=== PATIENT | female | born 1955 | race Caucasian/White ===

== ENCOUNTER → 2017-03-19 | Outpatient (CLI) | payer BC ==
[~2017-03-19] MED LIST: ATOR-14 PO; CHOL100027 PO; ESTR1CRE PV; LEVO88TA PO
--- NOTE | 2017-03-19 14:54 | MAMMOGRAPHY REPORT ---
BILATERAL DIGITAL SCREENING MAMMOGRAM TOMOSYNTHESIS WITH CAD: 03/19/2017 TECHNIQUE: Breast tomosynthesis in addition to standard 2D mammography was performed. Current study was also evaluated with a Computer Aided Detection (CAD) system. COMPARISON: Comparison is made to exams dated: 03/18/2016 mammogram, 03/15/2015 mammogram, 03/14/2014 m ammogram, 03/10/2013 mammogram, 02/23/2012 mammogram, and 02/13/2011 mammogram - [facility]. BREAST COMPOSITION: There are scattered areas of fibroglandular density in both breasts. FINDINGS: No suspicious masses, calcifications, or areas of architectural distortion are noted in ei ther breast. There has been no significant interval change compared to prior exams. IMPRESSION: ACR BI-RADS CATEGORY 1: NEGATIVE There is no mammographic evidence of malignancy. A 1 year screening mammogram is recommended. The pa tient will receive written notification of the results. Approximately 10% of breast cancers are not detected with mammography. A negative mammographic report should not delay biopsy if a clinically suggestive mass is present. Seda Ramirez M.D. /:03/19/2017 14:43:46 Driver Helper: Maria Antonia GAO(R)(M), [facility] letter sent: Normal 1/2 BI-RADS Code: ACR BI-RADS Category 1: Negative
== END | disposition home or self-care (01) ==
LOC: C.MAMM 08:11
PROVIDERS: ATTEND Family Medicine
DX: Z12.31 Encounter for screening mammogram for malignant neoplasm of breast (principal)

== ENCOUNTER 2017-06-17 14:33 | Emergency (ER) | payer BC, OTHER ==
[~2017-06-17] VITALS: Ht 157.5 cm; Wt 82.2 kg
[2017-06-17 14:40] VITALS: TEMP 36.9; Ht 157.5 cm; Wt 82.2 kg
[2017-06-17] MEDS ORDERED: METHYLPREDNISOLONE 125 MG VIAL IV STA (14:54)
[2017-06-17] MEDS ORDERED: ALBUT/IPRATROP 3MG/0.5MG NEB 3 ML VIAL INH ONE (15:00)
[2017-06-17] MEDS ORDERED: LISI-461 PO (15:04)
[2017-06-17] MEDS ORDERED: PHEN-582 PO (15:07)
[2017-06-17] MEDS ORDERED: PRM625 PV (15:10)
[2017-06-17] MEDS ORDERED: ATOR10TA82 PO (15:10)
[2017-06-17 15:11] VITALS: PULSE 95; O2SAT 96
[2017-06-17 15:29] LABS: MEAN CELL VOLUME 87.6 fL (80-100); MEAN CORPUSCULAR HEMOGLOBIN 29.9 pg (25-34); MEAN CORPUSCULAR HGB CONC 34.1 g/dl (32-36); PLATELET COUNT 415 K/uL (130-400); RED CELL DISTRIBUTION WIDTH CV 13.8 % (11.5-14.5); RED CELL DISTRIBUTION WIDTH SD 44.1 fL (36.4-46.3); WHITE BLOOD COUNT 16.79 K/uL (4.8-10.8)
[2017-06-17 15:47] LABS: CALCIUM 9.1 mg/dl (8.5-10.1); CREATININE 1.14 mg/dl (0.60-1.20); POTASSIUM 3.4 mmol/L (3.5-5.1)
--- NOTE | 2017-06-17 17:00 | DIAGNOSTIC IMAGING REPORT ---
CHEST 2 VIEWS ROUTINE HISTORY: 61 years-old Female cough acute cough with shortness of breath COMPARISON: Chest radiograph 08/05/2012 TECHNIQUE: PA and lateral views of the chest FINDINGS: Cardiomediastinal and hilar silhouettes are within normal limits. There is no pneumothorax, pleural effusion, focal airspace consolidation or overt pulmonary edema. Bones of the chest appear grossly intact. IMPRESSION: No acute process. The above report was generated using voice recognition software. It may contain grammatical, syntax or spelling errors. Electronically signed by: Radames Warren M.D. 06/17/2017 4:58 PM Dictated Date/Time: 06/17/2017 4:57 PM
--- NOTE | 2017-06-17 17:20 | EMERGENCY ROOM VISIT NOTE ---
History First contact with patient: 14:45 Chief Complaint: FLU LIKE SX Stated Complaint: COUGH, SOB History of Present Illness The patient is a 61 year old female who presents to the Emergency Room with complaints of cough and chest tightness. The patient states that she has had the symptoms for over a month and are getting progressively worse. The patient states that her chest feels very tight. She denies any fever, ear pain, sore throat, head congestion. The patient admits to a history of asthma. The patient was seen by her PCP on 2 occasions for her current symptoms. Initially she was placed on prednisone. She states that did not help she went back a week ago and was placed on a inhaler and given an antibiotic. I think it is Levaquin based on frequency that she took the medication. The patient states symptoms are still not getting any better. She states she never had a chest x- ray. Review of Systems 10 system review was performed and was negative unless stated otherwise history of present illness. Past Medical/Surgical History Hypertension, asthma, tonsillectomy, hysterectomy Social History Smoking Status: Never Smoker Marital Status: Housing Status: lives with family Occupation Status: employed Current/Historical Medications Scheduled Atorvastatin (Lipitor), 10 MG PO HS Cholecalciferol (Vitamin D 1000 Unit), 1,000 INTER.UNIT PO DAILY Levothyroxine Sodium (Synthroid), 88 MCG PO DAILY Lisinopril (Zestril), 10 MG PO DAILY Vvvwyvickbhiw-Kh-Yi W/ Apap (Tylenol Cold & Flu Severe), 1 TAB PO TID Scheduled PRN Estrogens, Conjugated (Premarin), 0.625 MG PV PRN PRN for PRN Physical Exam Vital Signs Date Time Temp Pulse Resp B/P (MAP) Pulse Ox O2 Delivery O2 Flow Rate FiO2 06/17/17 17:00 109 24 154/89 94 Room Air 06/17/17 16:30 108 20 150/93 97 Room Air 06/17/17 16:00 105 22 166/100 100 Nebulizer 06/17/17 15:30 100 17 136/89 100 Nebulizer 06/17/17 15:22 99 06/17/17 15:17 99 15 143/108 100 Room Air 06/17/17 15:11 95 17 96 Room Air 06/17/17 14:40 36.9 116 20 184/106 96 Room Air Physical Exam PHYSICAL EXAM: Vital Signs were reviewed: Temperature 36.9, blood pressure 184/ 106, pulse 116, respiratory rate 20 Reviewed Nurse's notes and agree. Oxygen saturation is 96 % on room air which is normal . GENERAL: 61-year-old white female in no acute distress. MENTAL STATUS: Alert, oriented, coherent. EARS: Canals clear. TMs good light reflex, no erythema or fluid level noted. NOSE: Nasal mucosa without erythema engorgement. PHARYNX: No erythema, no edema noted. No exudate noted. Airway is adequate. NECK: Supple, non-tender. No lymphadenopathy noted. LUNGS: Patient has diffuse inspiratory and expiratory wheeze. Poor air exchange noted. CARDIAC: Regular rate and rhythm without murmur. SKIN: No rashes noted. Medical Decision & Procedures ER Provider Diagnostic Interpretation: CHEST 2 VIEWS ROUTINE HISTORY: 61 years-old Female cough acute cough with shortness of breath COMPARISON: Chest radiograph 08/05/2012 TECHNIQUE: PA and lateral views of the chest FINDINGS: Cardiomediastinal and hilar silhouettes are within normal limits. There is no pneumothorax, pleural effusion, focal airspace consolidation or overt pulmonary edema. Bones of the chest appear grossly intact. IMPRESSION: No acute process. The above report was generated using voice recognition software. It may contain grammatical, syntax or spelling errors. Electronically signed by: Radames Warren M.D. Laboratory Results 06/17/17 15:01 Red Blood Count 5.02, Mean Corpuscular Volume 87.6, Mean Corpuscular Hemoglobin 29.9, Mean Corpuscular Hemoglobin Concent 34.1, Mean Platelet Volume 10.0 06/17/17 15:01 Test 06/17/17 15:01 White Blood Count 16.79 K/uL (4.8-10.8) Red Blood Count 5.02 M/uL (4.2-5.4) Hemoglobin 15.0 g/dL (12.0-16.0) Hematocrit 44.0 % (37-47) Mean Corpuscular Volume 87.6 fL (80-100) Mean Corpuscular Hemoglobin 29.9 pg (25-34) Mean Corpuscular Hemoglobin Concent 34.1 g/dl (32-36) Platelet Count 415 K/uL (130-400) Mean Platelet Volume 10.0 fL (7.4-10.4) RDW Standard Deviation 44.1 fL (36.4-46.3) RDW Coefficient of Variation 13.8 % (11.5-14.5) Neutrophils % (Manual) 58.2 % Lymphocytes % (Manual) 18.3 % Variant Lymphocytes % (manual) 15.7 % Monocytes % (Manual) 3.5 % Eosinophils % (Manual) 1.7 % Basophils % (Manual) 2.6 % Neutrophils # (Manual) 9.77 K/uL (1.4-6.5) Total Absolute Neutrophils 9.77 K/uL (1.4-6.5) Lymphocytes # (Manual) 3.07 K/uL (1.2-3.4) Absolute Variant Lymphocytes 2.64 K/uL Total Absolute Lymphocytes 5.71 K/uL (1.2-3.4) Monocytes # (Manual) 0.59 K/uL (0.11-0.59) Eosinophils # (Manual) 0.29 K/uL (0-0.5) Basophils # (Manual) 0.44 K/uL (0-0.2) Blood Smear Review Anion Gap 9.0 mmol/L (3-11) Est Creatinine Clear Calc Drug Dose 52.8 ml/min Estimated GFR () 61.0 Estimated GFR (Non- 52.6 BUN/Creatinine Ratio 9.8 (10-20) Calcium Level 9.1 mg/dl (8.5-10.1) Medications Administered Medications (Trade) Dose Ordered Sig/Sandrita Route Start Time Stop Time Status Last Admin Dose Admin Albuterol/ Ipratropium (Duoneb) 12 ml ONE ONCE INH 06/17/17 15:00 06/17/17 15:01 DC 06/17/17 15:08 12 ML Methylprednisolone Sodium Succinate (Solu-Medrol IV) 125 mg NOW STAT IV 06/17/17 14:54 06/17/17 14:56 DC 06/17/17 15:13 125 MG ED Course The patient was evaluated. The patient's EMR medication list were reviewed. IV access was obtained. CBC and differential, renal profile was ordered. The patient was given Solu-Medrol 125 mg IV. The patient was given an hour-long DuoNeb. Chest x-ray was ordered interpreted by the radiologist as above without any acute findings. Labs are reviewed. The patient's white count was elevated at 16,000. The patient was reevaluated after her hour-long DuoNeb and on auscultation the patient still had diffuse inspiratory and expiratory wheeze with poor air exchange bilaterally. The patient was placed on 2 L of oxygen via nasal cannula The patient's case was discussed with Dr. Varela who agreed with treatment plan. The hospitalist was paged for admission. Medical Decision Differential diagnosis include pneumonia, bronchitis, URI, GERD, PE, reactive airway disease [place] Drug Monitoring Program Search Results: patient reviewed within database Medication Reconcilliation Current Medication List: was personally reviewed by pr Blood Pressure Screening Patient's blood pressure: Elevated blood pressure Blood pressure disposition: Elevated BP felt to be situational Impression Primary Impression: Elevated white blood cell count Additional Impression: Shortness of breath at rest Departure Information Dispostion Being Evaluated By Hospitalist Condition GOOD Referrals Yani BloodD.OEmily (PCP) Patient Instructions My [facility] Problem Qualifiers Primary Impression: Elevated white blood cell count Leukocytosis type: unspecified Qualified Codes: D72.829 - Elevated white blood cell count, unspecified
[2017-06-17 17:23] VITALS: O2SAT 96
[2017-06-17] MEDS ORDERED: OPTIRAY 320 IV PRN (18:00)
[2017-06-17] MEDS ORDERED: MAGNESIUM SULFATE 1GM / D5W 1 GM in PREMIXED IN D5W 100 ML IV STA (18:33)
[2017-06-17] MEDS ORDERED: POTASSIUM CHLORIDE 20 MEQ TABCR PO STA (18:33)
--- NOTE | 2017-06-17 18:43 | History and Physical ---
History & Physical Date & Time of Service: Jun 17, 2017 at 18:19 Chief Complaint: Cough, Sob Primary Care Physician: Yani Blood D.O. History of Present Illness Source: patient 61 y/o F Hx HTN, HPL, hypothyroid, asthma. The pt states that she has had upper respiratory symptoms including a productive cough and SOB for one month. She has had a course of antibiotics and a steroid taper which she does not feel have helped her symptoms. She denies current fevers. She denies CP but has had generalized chest tightness for an extended period. She does not have a previous history of COPD or persistent asthma. On review of records, in 2010, the pt had similar symptoms lasting over 2 months. A pulmonary function test at the time did not confirm reversible airway disease. Past Medical/Surgical History 1) HTN 2) HPL 3) Hypothyroidism 4) Asthma Family History Mother with history of asthma, DM, CKD Father due to [place] at age 48 Social History Smoking Status: Never Smoker Marital Status: Housing status: lives with family Occupational Status: employed Immunizations History of Influenza Vaccine: Yes Influenza Vaccine Date: May 20, 2010 History of Tetanus Vaccine?: Yes Tetanus Immunization Date: May 19, 2007 History of Pneumococcal: No History of Hepatitis B Vaccine: Unknown Multi-Drug Resistant Organisms History of MDRO: No Allergies Coded Allergies: Propoxyphene (Verified Allergy, Unknown, UNKNOWN, 06/17/17) Sulfa Drugs (Unverified Allergy, Unknown, FACIAL SWELLING, 06/17/17) Home Medications Scheduled Atorvastatin (Lipitor), 10 MG PO HS Cholecalciferol (Vitamin D 1000 Unit), 1,000 INTER.UNIT PO DAILY Levothyroxine Sodium (Synthroid), 88 MCG PO DAILY Lisinopril (Zestril), 10 MG PO DAILY Kjabplzabydzt-Fs-Ep W/ Apap (Tylenol Cold & Flu Severe), 1 TAB PO TID Scheduled PRN Estrogens, Conjugated (Premarin), 0.625 MG PV PRN PRN for PRN Review of Systems Constitutional: No fever, No chills, No sweats Eyes: No worsening of vision ENT: + nasal symptoms, No hearing loss, No unusual epistaxis Respiratory: + cough, + sputum, + shortness of breath, + dyspnea on exertion, + dyspnea at rest Cardiovascular: No chest pain, No orthopnea, No PND Abdomen: No pain, No nausea, No vomiting Musculoskeletal: No joint pain Genitourinary - Female: No dysuria, No urinary frequency, No urinary urgency Neurologic: No memory loss, No paralysis, No weakness Psychiatric: No depression symptoms Endocrine: No fatigue Hematologic / Lymphatic: No abnormal bleeding/bruising Integumentary: No rash Allergic / Immunologic: No environmental allergies Physical Exam Vital Signs Date Time Temp Pulse Resp B/P (MAP) Pulse Ox O2 Delivery O2 Flow Rate FiO2 06/17/17 18:00 109 21 169/91 92 Room Air 06/17/17 17:23 104 20 96 Nasal Cannula 2.0 06/17/17 17:23 96 Nasal Cannula 2.0 06/17/17 17:00 109 24 154/89 94 Room Air 06/17/17 16:30 108 20 150/93 97 Room Air 06/17/17 16:00 105 22 166/100 100 Nebulizer 06/17/17 15:30 100 17 136/89 100 Nebulizer 06/17/17 15:22 99 06/17/17 15:17 99 15 143/108 100 Room Air 06/17/17 15:11 95 17 96 Room Air 06/17/17 14:40 36.9 116 20 184/106 96 Room Air General Appearance: WD/WN, no apparent distress Head: normocephalic Eyes: normal inspection ENT: normal ENT inspection, pharynx normal Neck: supple, no JVD Respiratory/Chest: chest non-tender, lungs clear, normal breath sounds Cardiovascular: regular rate, rhythm, no edema, no gallop Abdomen/GI: normal bowel sounds, non tender, soft Back: normal inspection, no CVA tenderness Extremities/Musculoskelatal: normal inspection, no calf tenderness, normal capillary refill Neurologic/Psych: media operator II-XII nml as tested, no motor/sensory deficits, alert, oriented x 3 Skin: normal color Diagnostics Laboratory Results Results Past 24 Hours Test 06/17/17 15:01 06/17/17 18:07 Range/Units White Blood Count 16.79 4.8-10.8 K/uL Red Blood Count 5.02 4.2-5.4 M/uL Hemoglobin 15.0 12.0-16.0 g/dL Hematocrit 44.0 37-47 % Mean Corpuscular Volume 87.6 80-100 fL Mean Corpuscular Hemoglobin 29.9 25-34 pg Mean Corpuscular Hemoglobin Concent 34.1 32-36 g/dl Platelet Count 415 130-400 K/uL Mean Platelet Volume 10.0 7.4-10.4 fL RDW Standard Deviation 44.1 36.4-46.3 fL RDW Coefficient of Variation 13.8 11.5-14.5 % Neutrophils % (Manual) 58.2 % Lymphocytes % (Manual) 18.3 % Variant Lymphocytes % (manual) 15.7 % Monocytes % (Manual) 3.5 % Eosinophils % (Manual) 1.7 % Basophils % (Manual) 2.6 % Neutrophils # (Manual) 9.77 1.4-6.5 K/uL Total Absolute Neutrophils 9.77 1.4-6.5 K/uL Lymphocytes # (Manual) 3.07 1.2-3.4 K/uL Absolute Variant Lymphocytes 2.64 K/uL Total Absolute Lymphocytes 5.71 1.2-3.4 K/uL Monocytes # (Manual) 0.59 0.11-0.59 K/uL Eosinophils # (Manual) 0.29 0-0.5 K/uL Basophils # (Manual) 0.44 0-0.2 K/uL Blood Smear Review Sodium Level 138 136-145 mmol/L Potassium Level 3.4 3.5-5.1 mmol/L Chloride Level 104 98-107 mmol/L Carbon Dioxide Level 25 21-32 mmol/L Anion Gap 9.0 3-11 mmol/L Blood Urea Nitrogen 11 7-18 mg/dl Creatinine 1.14 0.60-1.20 mg/dl Est Creatinine Clear Calc Drug Dose 52.8 ml/min Estimated GFR () 61.0 Estimated GFR (Non- 52.6 BUN/Creatinine Ratio 9.8 10-20 Random Glucose 127 70-99 mg/dl Calcium Level 9.1 8.5-10.1 mg/dl CXR normal Impression Assessment and Plan 61 y/o F Hx HTN, HPL, hypothyroid, asthma. The pt states that she has had upper respiratory symptoms including a productive cough and SOB for one month. She has had a course of antibiotics and a steroid taper which she does not feel have helped her symptoms. She denies current fevers. She denies CP but has had generalized chest tightness for an extended period. She does not have a previous history of COPD or persistent asthma. 1) Upper respiratory symptoms - have not responded to a recent course of antibiotics and a steroid taper. The pt is not exhibiting hypoxia or fevers. As her symptoms have persisted for a month, we will obtain a CT chest. If this is clear, she can liely be referrred to the pulmonology clinic for additional workup. We would advise on an additional steroid taper, long-acting inhaler and PRN Albuterol pendng f/u. We will swab her for influ. 2) HTN - cont Lisinopril 3) HPL - cont Atorvastatin 4) Hypothyroid - cont Synthroid Addendum - CTA is negative - rapid flu is negative - the pt does not have 02 requirements We have discussed DC with the pt and ER attending We will recommend an additional steroid taper, long and short-acting inhalers and follow-up with pulmonary - an appt will be made Please consider the above a consult Total time for this consult including review of labs, meds, imaging, records - 37 min Level of Care Med/Surg Resuscitation Status FULL RESUSCITATION VTE Prophylaxis Given or contraindicated: Unfractionated heparin SQ
[2017-06-17 18:47] LABS: INFLUENZA B ANTIGEN Neg for Influ B (NEG)
--- NOTE | 2017-06-17 19:02 | DIAGNOSTIC IMAGING REPORT ---
CHEST CTA for PULMONARY ARTERIES CT DOSE: 481.87 mGy.cm HISTORY: Atypical chest pain. TECHNIQUE: Multiaxial CT images of the chest were performed following the intravenous administration of contrast to evaluate the pulmonary arteries. Maximal intensity projection images were also obtained. A dose lowering technique was utilized adhering to the principles of ALARA. COMPARISON STUDY: Chest 06/17/2017. FINDINGS: Nondiagnostic evaluation the majority of the bilateral lower lobe, right middle lobe, and lingular segmental and subsegmental pulmonary arteries due to motion artifact. The main, lobar, and apical pulmonary arteries appear to be patent. The heart is borderline enlarged. No pleural or pericardial effusions. No mediastinal or hilar lymphadenopathy. The visualized liver and spleen are unremarkable. No suspicious lytic or blastic osseous lesions. The central airways are patent. No pneumothorax. No focal lung consolidations to suggest pneumonia. Mild mosaic attenuation may represent air trapping in the setting of small airways disease. IMPRESSION: 1. No evidence for pulmonary embolus with limitations as described above. 2. Mild mosaic attenuation may represent air trapping in the setting of small airways disease. No focal lung consolidations to suggest pneumonia. Electronically signed by: Corey Hopper M.D. 06/17/2017 7:01 PM Dictated Date/Time: 06/17/2017 6:53 PM
[2017-06-17] MEDS ORDERED: POTASSIUM CHLORIDE 10 MEQ TABCR ONE (19:19)
[2017-06-17] MEDS ORDERED: MAGNESIUM SULFATE 1GM / D5W 1 GM BAG ONE (19:19)
--- NOTE | 2017-06-17 19:27 | EMERGENCY ROOM VISIT NOTE ---
ED Visit Note First contact with patient: 19:08 I assumed care at the change of shift, Dr. Varela had been the physician prior to me. WENDY Cardona had been involved and the case as well. The patient was seen by the on-call hospitalist. She was not felt in need of a hospital stay. A CT of the chest was done, there was no PE. The patient was feeling improved after treatment here in the ER. Arrangements are being made for the patient to see a res habilitation assistant in the next 24-36 hours. The patient and her are amendable to discharge as she is feeling improved. She will be discharged with antibiotics, a burst of steroids, increased use of her albuterol. She has agreed to return to this ER for worsening symptoms. Of note, the patient is mildly tachycardic but in no distress. She is wheezing on exam, however, she is not hypoxic, she is not toxic. She is not in any respiratory distress.
[2017-06-17] MEDS ORDERED: DOXYCYCLINE HYCLATE 100 MG CAP PO STA (19:40)
[2017-06-17] MEDS ORDERED: PRED20TA2 PO (19:44)
[2017-06-17] MEDS ORDERED: DOXY100C2 PO (19:44)
[2017-06-17] MEDS ORDERED: ALBUTEROL HFA 8 GM INHALER INH ONE (19:45)
[2017-06-17 20:32] VITALS: BP 141/87; PULSE 100; O2SAT 97
== END 2017-06-17 20:29 | disposition home or self-care (01) ==
LOC: C.EDB 14:36
DX: D72.829 Elevated white blood cell count, unspecified (principal); R06.02 Shortness of breath; I10 Essential (primary) hypertension; E03.9 Hypothyroidism, unspecified; E78.5 Hyperlipidemia, unspecified; J45.909 Unspecified asthma, uncomplicated; Z79.899 Other long term (current) drug therapy; Z83.6 Family history of other diseases of the respiratory system; Z83.3 Family history of diabetes mellitus; Z84.1 Family history of disorders of kidney and ureter; Z82.49 Family history of ischemic heart disease and other diseases of the circulatory system; Z88.6 Allergy status to analgesic agent

== ENCOUNTER 2021-08-22 21:57 | Inpatient (IN) ==
--- NOTE | 2021-08-22 22:29 | Emergency Department Note ---
Impression & Plan Shortness of breath, Cough, Leukocytosis, Diffuse wheezing ED Provider Note NAME: MELISSA ROMANO AGE: 66 SEX: F : 1955 ARRIVES VIA: Walk-In INFORMANT: Patient, ED PROVIDER(S): Fahad Singh MD Chief Complaint: Shortness of breath and cough HPI: Patient does present with above symptoms and states that they have been ongoing for approximately 1 week. The patient was seen here 4 days ago and told that she likely had a viral type illness. Patient states that her symptoms are gotten progressively worse for the patient does have a productive cough with thick sputum. The patient is a non-smoker. No history of DVT or PE. The patient has had associated nausea and feeling sick to her stomach but no vomiting. The patient denies any chest pains. The patient had been trying [id number] medications but without significant improvement in symptoms. The patient had been on amlodipine 10 mg in the past but had been restarted on amlodipine 5 mg for blood pressure. Patient was initially taken off of this due to leg swelling and was concerned that the reintroduction of the blood pressure medication may be causing her symptoms. The patient restarted this back in May. ROS: See HPI for pertinent positives and negatives. A total of 10 systems were reviewed and otherwise negative. Past medical history: See below Surgical history: See below Social history: See below Physical Exam: GENERAL: Mild distress, wearing glasses and a mask. EYE EXAM: Normal conjunctiva. PERRL, no anisocoria and EOM's grossly intact w/o pain. OROPHARYNX: Moist mucus membranes. Grossly normal dentition. NECK: Supple, no nuchal rigidity, no adenopathy, non-tender. No signs of meningismus. No stridor LUNGS: Mild tachypnea noted, diffuse wheezing throughout. HEART: Tachycardic and regular, no MRG. ABDOMEN: Abdomen soft, non-tender, normo-active bowel sounds, no masses, no rebound or guarding. BACK: No CVA TTP. SKIN: No rashes and no bruising. UPPER EXTREMITIES: Upper extremities are grossly normal. LOWER EXTREMITIES: Grossly normal, no edema. Negative Homans' sign bilaterally. NEURO EXAM: A&O x3, cranial nerves II-XII grossly intact, normal speech, moves all 4 extremities on command w/o issue. Differential diagnoses: Reactive airway disease, pneumonia, pneumothorax, COPD, CHF, infections, cardiac ischemia, pulmonary embolism, musculoskeletal, gastrointestinal, as well as other pathologies. Course: Patient was seen and evaluated the bedside. Full history physical exam was performed. EKG interpreted by me Normal sinus rhythm, rate of 68, normal intervals, normal axis, T wave inversion in lead III. No obvious ST elevations Imaging Studies: See Below Cardiac monitoring: An order was placed for continuous cardiac monitoring. The monitor shows a rate of 95 with sinus rhythm. MDM: Patient was seen due to concern for respiratory symptoms and the patient did appear to be tachypneic with significant wheezing. The patient was ordered duo nebs, steroids, magnesium and IV fluids. Blood work was also obtained and I did order the patient Rocephin to cover the possibility of a pneumonia. The patient has a white count of 13 with a normal H&H and platelet count. Patient's kidney function is unremarkable with a high-sensitivity troponin that is not elevated. The patient did have improvement in her symptoms after the treatments but the patient still had wheezing and I thought it best to keep the patient in hospital for continued treatments. Patient is agreeable to this. Patient's blood gas does not show any acidosis. Chest x-ray by my read appears that she reports po or inspiratory effort but no obvious pneumonia pneumothorax or pleural effusion. Covid fluid RSV negative. The patient was admitted to the medicine service by Dr. Crandall. Past Med/Surg History Medical History Acid reflux HLD (hyperlipidemia) HTN (hypertension) Hypothyroid QT prolongation follows with Dr. Peraza Seizure during delivery of breech child--no issues, no neurologist Sleep apnea cpap Surgical History History of benign breast biopsy History of cardiac cath (~2018) @ [facility]--no stents History of carpal tunnel release of both wrists History of colonoscopy History of esophagogastroduodenoscopy (EGD) History of tonsillectomy History of tooth extraction History of total hysterectomy with bilateral salpingo-oophorectomy (BSO) History of wisdom tooth extraction Family History Brother Family history of diabetes mellitus Family history of reaction to anesthesia as a child had "certain anesthesia made him feel like he was drowning" Aunt Family history of diabetes mellitus Uncle Family history of diabetes mellitus Brother Family history of diabetes mellitus Grandmother (Maternal) Family hx of colon cancer Social History Smoking Status: Never smoker Second Hand Exposure: No; Hx Alcohol Use: No Hx Substance Use: No Preferred Language: Kyrgyz Communication Ability: Effective 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 Beliefs That Will Affect Care: None Current Living Situation: Spouse, Parent and Family Current Living Situation Comment: Lives with , mother, and granddaughter Feels Safe at Home: Yes Assistive Devices: CPAP and Glasses Allergies Allergies Allergy/AdvReac Type Severity Reaction Status Date / Time Sulfa (Sulfonamide Allergy Intermediate FACIAL Verified 08/19/20 20:17 Antibiotics) SWELLING propoxyphene Allergy Mild Vomiting Verified 08/19/20 20:17 Home Meds Home Medications Medication Instructions Recorded Confirmed cholecalciferol (vitamin D3) 25 25 mcg PO QAM 10/02/19 08/23/21 mcg (1,000 unit) tablet (Vitamin D3) olmesartan 40 mg tablet (Benicar) 40 mg PO QAM 10/02/19 08/23/21 pravastatin 80 mg tablet 80 mg PO 10/02/19 08/23/21 famotidine 20 mg tablet 20 mg PO QAM 08/19/20 08/23/21 amlodipine 5 mg tablet 5 mg PO QAM 08/18/21 08/23/21 carvedilol 6.25 mg tablet 6.25 mg PO BID 08/18/21 08/23/21 ropinirole 0.5 mg tablet 0.5 mg PO HS 08/18/21 08/23/21 vilazodone 10 mg tablet (Viibryd) 10 mg PO QAM 08/18/21 08/23/21 benzonatate 100 mg capsule 100 mg PO TID PRN 08/23/21 08/23/21 levalbuterol tartrate 45 2 puff INHALATION Q4 PRN 08/23/21 08/23/21 mcg/actuation aerosol inhaler levothyroxine 100 mcg tablet 100 mcg PO DAILYBB 08/23/21 08/23/21 prednisone 20 mg tablet 40 mg PO DAILY 08/23/21 08/23/21 Results & Data (ED) Vital Signs Vital Signs - 24 hr 08/22/21 22:01 08/22/21 22:28 08/22/21 22:49 Temperature 36.5 C Temperature Source Temporal Artery Scan Pulse Rate 103 H Pulse Rate [Finger] Pulse Rhythm Pulse Rhythm [Finger] Pulse Strength [Finger] Respiratory Rate 26 H 80 H Respiratory Effort / Characteristics Labored Spontaneous Short of Breath Respiratory Depth Deep Respiratory Pattern Tachypnea Tachypnea Blood Pressure 173/112 H Blood Pressure [Right Arm] Blood Pressure Mean 132 Blood Pressure Mean [Right Arm] Blood Pressure Position Sitting Blood Pressure Position [Right Arm] Pulse Oximetry 96 99 Oxygen Delivery Method Room Air Room Air Room Air Sepsis Recent Fever Within 48 Hours No Sepsis New/Unexplained Change in Mental Status N/A Sepsis Action Taken by Nursing No Action Required 08/22/21 22:58 08/22/21 23:04 08/23/21 00:00 Temperature Temperature Source Pulse Rate Pulse Rate [Finger] 70 67 Pulse Rhythm Regular Pulse Rhythm [Finger] Regular Regular Pulse Strength [Finger] Normal Normal Respiratory Rate 26 H 21 20 Respiratory Effort / Characteristics Labored Non-Labored Spontaneous Respiratory Depth Deep Normal Respiratory Pattern Regular Tachypnea Regular Blood Pressure Blood Pressure [Right Arm] 171/106 H 147/87 H Blood Pressure Mean Blood Pressure Mean [Right Arm] 127 107 Blood Pressure Position Blood Pressure Position [Right Arm] Sitting Pulse Oximetry 96 99 99 Oxygen Delivery Method Room Air Nebulizer Room Air Sepsis Recent Fever Within 48 Hours Sepsis New/Unexplained Change in Mental Status Sepsis Action Taken by Nursing 08/23/21 00:44 Temperature Temperature Source Pulse Rate Pulse Rate [Finger] 74 Pulse Rhythm Pulse Rhythm [Finger] Regular Pulse Strength [Finger] Normal Respiratory Rate 19 Respiratory Effort / Characteristics Non-Labored Respiratory Depth Normal Respiratory Pattern Blood Pressure Blood Pressure [Right Arm] 155/87 H Blood Pressure Mean Blood Pressure Mean [Right Arm] 109 Blood Pressure Position Blood Pressure Position [Right Arm] Sitting Pulse Oximetry 95 Oxygen Delivery Method Room Air Sepsis Recent Fever Within 48 Hours Sepsis New/Unexplained Change in Mental Status Sepsis Action Taken by Long Term Medications Current Medication List: was personally reviewed by me Laboratory Data Attestation: I reviewed the patient's lab results. Result diagrams: 08/22/21 22:38 08/22/21 22:38 Lab Results 08/22/21 08/22/21 08/22/21 Range/Units 22:38 22:38 22:38 WBC 13.27 H (4.8-10.8) K/uL RBC 4.44 (4.2-5.4) M/uL Hgb 13.0 (12.0-16.0) g/dL Hct 38.9 (37-47) % MCV 87.6 (80-100) fL MCH 29.3 (25-34) pg MCHC 33.4 (32-36) g/dL RDW Std Deviation 43.0 (36.4-46.3) fL RDW Coeff of Leonor 13.3 (11.5-14.5) % Plt Count 400 (130-400) K/uL MPV 9.8 (7.4-10.4) fL Immature Gran % (Auto) 0.9 % Neut % (Auto) 76.5 % Lymph % (Auto) 18.6 % Glasscock % (Auto) 3.9 % Eos % (Auto) 0.0 % Baso % (Auto) 0.1 % Neut # (Auto) 10.15 H (1.4-6.5) K/uL Lymph # (Auto) 2.47 (1.2-3.4) K/uL Glasscock # (Auto) 0.52 (0.11-0.59) K/uL Eos # (Auto) 0.00 (0-0.5) K/uL Baso # (Auto) 0.01 (0-0.2) K/uL Immature Gran # (Auto) 0.12 H (0.00-0.02) K/uL VBG pH 7.48 H (7.36-7.41) VBG pCO2 34 L (38-50) mmHg VBG pO2 72 mmHg VBG HCO3 25 mmol/L VBG O2 Saturation 95.7 % VBG Base Excess 1.8 mEq/L Barometric Pressure 731.9 mm/Hg Sodium 139 (136-145) mmol/L Potassium 4.0 (3.5-5.1) mmol/L Chloride 105 (98-107) mmol/L Carbon Dioxide 25 (21-32) mmol/L Anion Gap 9 (3-11) BUN 16 (6-23) mg/dl Creatinine 1.05 (0.6-1.2) mg/dl Est Cr Clr Drug Dosing 54.6 ml/min Est GFR ( Amer) 65.0 ml/min Est GFR (Non-Af Amer) 56.1 ml/min BUN/Creatinine Ratio 15.2 (10-20) Glucose 124 H (70-99(Fasting)) mg/dl Calcium 9.2 (8.5-10.1) mg/dl Magnesium 2.0 (1.7-2.4) mg/dl Total Bilirubin 0.4 (0.2-1.0) mg/dl AST 21 (13-39) U/L ALT 25 (7-52) U/L Alkaline Phosphatase 75 (34-104) U/L Troponin I High Sens 2.5 (0-14) pg/ml Total Protein 7.2 (6.0-8.3) gm/dl Albumin 4.2 (3.4-5.0) gm/dl Globulin 3.0 (2.5-4.0) gm/dl Albumin/Globulin Ratio 1.4 (0.9-2) SARS-CoV-2 (PCR) (Negative) Influenza Type A (PCR) (Neg) Influenza Type B (PCR) (Neg) RSV (RT-PCR) (Neg) 08/22/21 Range/Units 23:00 WBC (4.8-10.8) K/uL RBC (4.2-5.4) M/uL Hgb (12.0-16.0) g/dL Hct (37-47) % MCV (80-100) fL MCH (25-34) pg MCHC (32-36) g/dL RDW Std Deviation (36.4-46.3) fL RDW Coeff of Leonor (11.5-14.5) % Plt Count (130-400) K/uL MPV (7.4-10.4) fL Immature Gran % (Auto) % Neut % (Auto) % Lymph % (Auto) % Glasscock % (Auto) % Eos % (Auto) % Baso % (Auto) % Neut # (Auto) (1.4-6.5) K/uL Lymph # (Auto) (1.2-3.4) K/uL Glasscock # (Auto) (0.11-0.59) K/uL Eos # (Auto) (0-0.5) K/uL Baso # (Auto) (0-0.2) K/uL Immature Gran # (Auto) (0.00-0.02) K/uL VBG pH (7.36-7.41) VBG pCO2 (38-50) mmHg VBG pO2 mmHg VBG HCO3 mmol/L VBG O2 Saturation % VBG Base Excess mEq/L Barometric Pressure mm/Hg Sodium (136-145) mmol/L Potassium (3.5-5.1) mmol/L Chloride (98-107) mmol/L Carbon Dioxide (21-32) mmol/L Anion Gap (3-11) BUN (6-23) mg/dl Creatinine (0.6-1.2) mg/dl Est Cr Clr Drug Dosing ml/min Est GFR ( Amer) ml/min Est GFR (Non-Af Amer) ml/min BUN/Creatinine Ratio (10-20) Glucose (70-99(Fasting)) mg/dl Calcium (8.5-10.1) mg/dl Magnesium (1.7-2.4) mg/dl Total Bilirubin (0.2-1.0) mg/dl AST (13-39) U/L ALT (7-52) U/L Alkaline Phosphatase (34-104) U/L Troponin I High Sens (0-14) pg/ml Total Protein (6.0-8.3) gm/dl Albumin (3.4-5.0) gm/dl Globulin (2.5-4.0) gm/dl Albumin/Globulin Ratio (0.9-2) SARS-CoV-2 (PCR) NEGATIVE (Negative) Influenza Type A (PCR) Negative (Neg) Influenza Type B (PCR) Negative (Neg) RSV (RT-PCR) Negative (Neg) Administered Medications Discontinued Medications Albuterol (Albut/Ipratrop 3mg/0.5mg Neb 3 Ml Vial) 12 ml INH ONE STA Stop: 08/22/21 22:35 Last Admin: 08/22/21 22:48 Dose: 12 ml Documented by: [id number] Magnesium Sulfate/Dextrose (Magnesium Sulfate / D5w) 1 gm in 100 mls @ 100 mls/hr IV Q1H MAXWELL Stop: 08/23/21 00:44 Last Admin: 08/23/21 00:42 Dose: 100 mls/hr Documented by: [id number] Infusion: 08/23/21 00:10 Dose: 0 mls/hr Documented by: [id number] Admin: 08/22/21 22:46 Dose: 100 mls/hr Documented by: [id number] Sodium Chloride (Nss 1000ml) 1,000 mls @ 999 mls/hr IV .Q1H1M ONE Stop: 08/22/21 23:34 Last Infusion: 08/23/21 00:10 Dose: 0 mls/hr Documented by: [id number] Admin: 08/22/21 22:46 Dose: 999 mls/hr Documented by: [id number] Ceftriaxone Sodium (Rocephin) 2,000 mg in 70 mls @ 140 mls/hr IV NOW STA Stop: 08/22/21 23:05 Last Infusion: 08/23/21 00:42 Dose: 0 mls/hr Documented by: [id number] Admin: 08/23/21 00:10 Dose: 140 mls/hr Documented by: [id number] Methylprednisolone (Methylprednisolone 125 Mg/2 Ml Vial) 125 mg IV NOW STA Stop: 08/22/21 22:35 Last Admin: 08/22/21 22:43 Dose: 125 mg Documented by: [id number] Discharge Plan Visit Data Chief Complaint: Shortness of Breath/Dyspnea Stated Complaint: SOB, COUGH, HEADACHE, NAUSEA ED Provider: Fahad Sinhg Discharge Problem: Shortness of breath, Cough, Leukocytosis, Diffuse wheezing Patient Disposition: Admitted As Inpatient Forms Stand Alone Forms: [facility] Prescriptions Prescriptions: No Action pravastatin 80 mg tablet 80 mg PO HS RF: 0 olmesartan [Benicar] 40 mg tablet 40 mg PO QAM RF: 0 cholecalciferol (vitamin D3) [Vitamin D3] 25 mcg (1,000 unit) Tablet 25 mcg PO QAM RF: 0 famotidine 20 mg tablet 20 mg PO QAM RF: 0 carvedilol 6.25 mg tablet 6.25 mg PO BID RF: 0 amlodipine 5 mg tablet 5 mg PO QAM RF: 0 ropinirole 0.5 mg tablet 0.5 mg PO HS RF: 0 Viibryd 10 mg tablet 10 mg PO QAM RF: 0 prednisone 20 mg tablet 40 mg PO DAILY RF: 0 benzonatate 100 mg capsule 100 mg PO TID PRN (Reason: Cough) RF: 0 levothyroxine 100 mcg tablet 100 mcg PO DAILYBB RF: 0 levalbuterol tartrate 45 mcg/actuation HFA aerosol inhaler 2 puff INHALATION Q4 PRN (Reason: Wheezing) RF: 0 Referrals Referrals: Yani Blood DO [Primary Care Provider] -
[2021-08-22] MEDS ORDERED: methylPREDNISolone 125 MG/2 ML VIAL IV STA (22:34)
[2021-08-22] MEDS ORDERED: SODIUM CHLORIDE 0.9% 1000ML 1,000 ML IV ONE (22:34)
[2021-08-22] MEDS ORDERED: ALBUT/IPRATROP 3MG/0.5MG NEB 3 ML VIAL INH STA (22:34)
[2021-08-22] MEDS ORDERED: cefTRIAXone SODIUM 2,000 MG/70 ML BAG IV STA (22:36)
[2021-08-22] MEDS: MAGNESIUM SULFATE / D5W 1 GM/100 ML BAG IV SCH (22:46)
[2021-08-22 22:50] LABS: Basophils # (auto) 0.01 K/uL (0-0.2); Basophils % (auto) 0.1 %; Hematocrit (blood only) 38.9 % (37-47); Immature Granulocytes # (auto) 0.12 K/uL (0.00-0.02); Immature Granulocytes % (auto) 0.9 %; Lymphocytes # (auto) 2.47 K/uL (1.2-3.4); Lymphocytes % (auto) 18.6 %; Mean Corpuscular Hemoglobin 29.3 pg (25-34); Mean Corpuscular Hgb Conc 33.4 g/dL (32-36); Mean Corpuscular Volume 87.6 fL (80-100); Mean Platelet Volume 9.8 fL (7.4-10.4); Monocytes # (auto) 0.52 K/uL (0.11-0.59); Monocytes % (auto) 3.9 %; Neutrophils # (auto) 10.15 K/uL (1.4-6.5); Neutrophils % (auto) 76.5 %; Platelet Count 400 K/uL (130-400); RDW Coefficient of Variation 13.3 % (11.5-14.5); Red Blood Count 4.44 M/uL (4.2-5.4); White Blood Count 13.27 K/uL (4.8-10.8)
[2021-08-22 22:53] LABS: Base Excess VBG 1.8 mEq/L; Oxygen Saturation VBG 95.7 %; pH VBG 7.48 (7.36-7.41)
[2021-08-22 23:07] LABS: Albumin Globulin Ratio 1.4 (0.9-2); Albumin Level 4.2 gm/dl (3.4-5.0); BUN Creatinine Ratio 15.2 (10-20); Bilirubin,Total 0.4 mg/dl (0.2-1.0); Calcium 9.2 mg/dl (8.5-10.1); Creatinine Clr Calc Pharmacy 54.6 ml/min; Est GFR (Non-African American) 56.1 ml/min; Total Protein 7.2 gm/dl (6.0-8.3)
[2021-08-22 23:14] LABS: Troponin I High Sensitivity 2.5 pg/ml (0-14)
[2021-08-23 00:03] LABS: Influenza A virus by PCR Negative (Neg); Influenza B virus by PCR Negative (Neg); RSV by PCR Negative (Neg); SARS CoV2 RNA(COVID-19) InHosp NEGATIVE (Negative)
[2021-08-23] MEDS: MAGNESIUM SULFATE / D5W 1 GM/100 ML BAG IV SCH (00:42)
[2021-08-23 01:11] LABS: Appearance Urine Clear (Clear); Bacteria Urine Automated 1+ (Negative); Bilirubin Urine Negative (Negative); Blood Urine Negative (Negative); Cast Urine Automated 0 /lpf (0-5); Color Urine Yellow; Epithelial Cell Urine Auto >30 /lpf (0-5); Glucose Urine UA Negative (Negative); Ketones Urine Negative (Negative); Leukocyte Esterase Urine 1+ (Negative); Nitrite Urine Negative (Negative); Protein Urine Negative (Negative); RBC Urine Automated 0-4 /hpf (0-4); Specific Gravity Urine 1.018 (1.000-1.030); Urobilinogen Urine Negative (Negative)
--- NOTE | 2021-08-23 01:14 | History & Physical Report ---
Date of Service August 23, 2021 Assessment & Plan (1) Asthma exacerbation: Plan: Received Solu-Medrol 125 mg IV via the ED, a DuoNeb treatment and ceftriaxone 2 g IV Solu-Medrol 40 mg IV every 8 hours Guaifenesin extended release 1200 mg p.o. twice daily Azithromycin 500 mg IV daily Duonebs every 4 hours while awake and every 2 hours when necessary. Nasal cannula oxygen, titrate to keep pulse ox around 94% (2) Restless leg syndrome: Plan: Continue ropinirole 0.5 mg at bedtime (3) HTN (hypertension): Plan: Continue carvedilol 6.25 mg p.o. twice daily, amlodipine 5 mg every morning and telmisartan 40 mg every morning (4) Anxiety: Plan: Continue Viibryd 10 mg every morning (5) Hypothyroid: Plan: Continue levothyroxine 100 mcg daily (6) Acid reflux: Plan: Continue famotidine 20 mg every morning (7) HLD (hyperlipidemia): Plan: Continue pravastatin 80 mg at bedtime (8) Sleep apnea: Plan: CPAP at bedtime as needed History of Present Illness Chief Complaint: The patient presents to the emergency department with complaint of shortness of breath and cough productive of thick mucus persisting and slightly worsening over the past week. She was assessed in the emergency department 4 days ago, and was thought to have a viral illness, however, patient has continued to worsen since that time. Primary Care Provider: Yani Blood DO The patient is a 66-year-old female with a past medical history including hypertension, GERD, asthma, hypothyroidism, hyperlipidemia, restless legs and anxiety. She presents to the emergency department with symptoms as noted above. She is felt to have reactive airways disease exacerbation, and was referred for evaluation for admission. From the ED, she received Solu-Medrol 105 mg IV, magnesium 1 g IV, ceftriaxone 2 g IV, a DuoNeb, and 1 L normal saline Allergies Allergy/AdvReac Type Severity Reaction Status Date / Time Sulfa (Sulfonamide Allergy Intermediate FACIAL Verified 08/19/20 20:17 Antibiotics) SWELLING propoxyphene Allergy Mild Vomiting Verified 08/19/20 20:17 Home Medications Medication Instructions Recorded Confirmed Type cholecalciferol (vitamin D3) 25 25 mcg PO QAM 10/02/19 08/23/21 History mcg (1,000 unit) tablet (Vitamin D3) olmesartan 40 mg tablet (Benicar) 40 mg PO QAM 10/02/19 08/23/21 History pravastatin 80 mg tablet 80 mg PO HS 10/02/19 08/23/21 History famotidine 20 mg tablet 20 mg PO QAM 08/19/20 08/23/21 History amlodipine 5 mg tablet 5 mg PO QAM 08/18/21 08/23/21 History carvedilol 6.25 mg tablet 6.25 mg PO BID 08/18/21 08/23/21 History ropinirole 0.5 mg tablet 0.5 mg PO HS 08/18/21 08/23/21 History vilazodone 10 mg tablet (Viibryd) 10 mg PO QAM 08/18/21 08/23/21 History benzonatate 100 mg capsule 100 mg PO TID PRN 08/23/21 08/23/21 History levalbuterol tartrate 45 2 puff INHALATION Q4 PRN 08/23/21 08/23/21 History mcg/actuation aerosol inhaler levothyroxine 100 mcg tablet 100 mcg PO DAILYBB 08/23/21 08/23/21 History prednisone 20 mg tablet 40 mg PO DAILY 08/23/21 08/23/21 History Past Med/Surg History Medical History (Updated 08/23/21 @ 05:01 by Eduardo Crenshaw MD) Acid reflux Anxiety HLD (hyperlipidemia) HTN (hypertension) Hypothyroid QT prolongation follows with Dr. Peraza Restless leg syndrome Seizure during delivery of breech child--no issues, no neurologist Sleep apnea cpap Surgical History History of benign breast biopsy History of cardiac cath (~2018) @ [facility]--no stents History of carpal tunnel release of both wrists History of colonoscopy History of esophagogastroduodenoscopy (EGD) History of tonsillectomy History of tooth extraction History of total hysterectomy with bilateral salpingo-oophorectomy (BSO) History of wisdom tooth extraction Family History Brother Family history of diabetes mellitus Family history of reaction to anesthesia as a child had "certain anesthesia made him feel like he was drowning" Aunt Family history of diabetes mellitus Uncle Family history of diabetes mellitus Brother Family history of diabetes mellitus Grandmother (Maternal) Family hx of colon cancer Social History Smoking Status: Never smoker Second Hand Exposure: No; Hx Alcohol Use: No Hx Substance Use: No Preferred Language: Divehi Communication Ability: Effective Back Tender Required: No Beliefs That Will Affect Care: None Current Living Situation: Spouse Current Living Situation Comment: Lives with , mother, and granddaughter Other Information That Helps Us Care for You: No Feels Safe at Home: Yes Safety Concerns: Feels Safe At This Time Assistive Devices: None Review of Systems Review of Systems: The patient denies chest pain, palpitations, lower extremity swelling, sore throat, fevers, chills, sweats, vomiting, diarrhea , constipation, abdominal pain, pelvic pain, blood in urine or stool, dysuria, urinary frequency or urgency, lightheadedness, dizziness, headache, memory loss, loss of consciousness, rash, abnormal bruising or bleeding, imbalance, focal weakness, numbness or tingling in arms or legs, generalized arthralgias or myalgias, back or neck pain, or night sweats. The review of systems is otherwise negative other than for that already noted above, and at least 10 systems have been reviewed. Physical Exam Physical Exam: The patient is awake, alert and oriented 3, well developed and well nourished, normocephalic and atraumatic, lying in bed and in no acute distress. HEENT--PERRL, EOMI, mucous membranes and oropharynx normal Neck--supple. No JVD. No bruits. Thyroid normal, trachea midline, no adenopathy. Heart--normal S1 and S2. No murmurs, rubs or gallops. Lungs--wheezes bilaterally. No respiratory distress, no accessory muscle use. Abdomen--normal bowel sounds and soft. Nontender. Nondistended, no hernias or masses, no organomegaly. Extremities--no cyanosis or clubbing. No edema. Dermatologic--normal skin turgor, normal color, no abnormal lymph nodes, no rash. Neurologic--cranial nerves II through XII grossly intact. Rheumatologic--normal range of motion. Psychiatric--normal affect. Results & Data Results & Data ([facility]) Vital Signs (Past 12 Hours) Vital Signs Temp Pulse Pulse Resp BP BP Pulse Ox 08/23/21 00:44 74 19 155/87 H 95 08/23/21 00:00 67 20 147/87 H 99 08/22/21 23:04 70 21 171/106 H 99 08/22/21 22:58 26 H 96 08/22/21 22:49 80 H 99 08/22/21 22:01 36.5 C 103 H 26 H 173/112 H 96 Laboratory Results Laboratory Results WBC 13.27 K/uL (4.8-10.8) H 08/22/21 22:38 RBC 4.44 M/uL (4.2-5.4) 08/22/21 22:38 Hgb 13.0 g/dL (12.0-16.0) 08/22/21 22:38 Hct 38.9 % (37-47) 08/22/21 22:38 MCV 87.6 fL (80-100) 08/22/21 22:38 MCH 29.3 pg (25-34) 08/22/21 22:38 MCHC 33.4 g/dL (32-36) 08/22/21 22:38 RDW Std Deviation 43.0 fL (36.4-46.3) 08/22/21 22:38 RDW Coeff of Leonor 13.3 % (11.5-14.5) 08/22/21 22:38 Plt Count 400 K/uL (130-400) 08/22/21 22:38 MPV 9.8 fL (7.4-10.4) 08/22/21 22:38 Immature Gran % (Auto) 0.9 % 08/22/21 22:38 Neut % (Auto) 76.5 % 08/22/21 22:38 Lymph % (Auto) 18.6 % 08/22/21 22:38 [place] % (Auto) 3.9 % 08/22/21 22:38 Eos % (Auto) 0.0 % 08/22/21 22:38 Baso % (Auto) 0.1 % 08/22/21:38 Neut # (Auto) 10.15 K/uL (1.4-6.5) H 08/22/21 22:38 Lymph # (Auto) 2.47 K/uL (1.2-3.4) 08/22/21 22:38 [place] # (Auto) 0.52 K/uL (0.11-0.59) 08/22/21 22:38 Eos # (Auto) 0.00 K/uL (0-0.5) 08/22/21 22:38 Baso # (Auto) 0.01 K/uL (0-0.2) 08/22/21 22:38 Immature Gran # (Auto) 0.12 K/uL (0.00-0.02) H 08/22/21 22:38 VBG pH 7.48 (7.36-7.41) H 08/22/21 22:38 VBG pCO2 34 mmHg (38-50) L 08/22/21 22:38 VBG pO2 72 mmHg 08/22/21 22:38 VBG HCO3 25 mmol/L 08/22/21 22:38 VBG O2 Saturation 95.7 % 08/22/21 22:38 VBG Base Excess 1.8 mEq/L 08/22/21 22:38 Barometric Pressure 731.9 mm/Hg 08/22/21 22:38 Sodium 139 mmol/L (136-145) 08/22/21 22:38 Potassium 4.0 mmol/L (3.5-5.1) 08/22/21 22:38 Chloride 105 mmol/L (98-107) 08/22/21 22:38 Carbon Dioxide 25 mmol/L (21-32) 08/22/21 22:38 Anion Gap 9 (3-11) 08/22/21 22:38 BUN 16 mg/dl (6-23) 08/22/21 22:38 Creatinine 1.05 mg/dl (0.6-1.2) 08/22/21 22:38 Est Cr Clr Drug Dosing 54.6 ml/min 08/22/21 22:38 Est GFR ( Amer) 65.0 ml/min 08/22/21 22:38 Est GFR (Non-Af Amer) 56.1 ml/min 08/22/21 22:38 BUN/Creatinine Ratio 15.2 (10-20) 08/22/21 22:38 Glucose 124 mg/dl (70-99(Fasting)) H 08/22/21 22:38 Calcium 9.2 mg/dl (8.5-10.1) 08/22/21 22:38 Magnesium 2.0 mg/dl (1.7-2.4) 08/22/21 22: Total Bilirubin 0.4 mg/dl (0.2-1.0) 08/22/21 22:38 AST 21 U/L (13-39) 08/22/21 22:38 ALT 25 U/L (7-52) 08/22/21 22: Alkaline Phosphatase 75 U/L (34-104) 08/22/21 22:38 Troponin I High Sens 2.5 pg/ml (0-14) 08/22/21 22: Total Protein 7.2 gm/dl (6.0-8.3) 08/22/21 22: Albumin 4.2 gm/dl (3.4-5.0) 08/22/21: Globulin 3.0 gm/dl (2.5-4.0) 08/22/21: Albumin/Globulin Ratio 1.4 (0.9-2) 08/22/21 22: Urine Color Yellow 08/22/21 23: Urine Appearance Clear (Clear) 08/22/21 23: Urine pH 7.0 (4.5-7.5) 08/22/21: Ur Specific [place] 1.018 (1.000-1.030) 08/22/21 23: Urine Protein Negative (Negative) 08/22/21 23: Urine Glucose (UA) Negative (Negative) 08/22/21: Urine Ketones Negative (Negative) 08/22/21: Urine Blood Negative (Negative) 08/22/21 23: Urine Nitrite Negative (Negative) 08/22/21 23: Urine Bilirubin Negative (Negative) 08/22/21 23: Urine Urobilinogen Negative (Negative) 08/22/21: Ur Leukocyte Esterase 1+ (Negative) H 08/22/21 23: Urine WBC (Auto) 5-10 /hpf (0-5) H 08/22/21 23: Urine RBC (Auto) 0-4 /hpf (0-4) 08/22/21 23: U Hyaline Cast (Auto) 0 /lpf (0-5) 08/22/21 23:27 U Epithel Cells (Auto) >30 /lpf (0-5) H 08/22/21 23:27 Urine Bacteria (Auto) 1+ (Negative) H 08/22/21 23:27 SARS-CoV-2 (PCR) NEGATIVE (Negative) 08/22/21 23:00 Influenza Type A (PCR) Negative (Neg) 08/22/21 23:00 Influenza Type B (PCR) Negative (Neg) 08/22/21 23:00 RSV (RT-PCR) Negative (Neg) 08/22/21 23:00 Code Status & VTE Plan Code Status Full code VTE Prophylaxis Plan VTE Prophylaxis will be ordered: Yes PG Care Time/CCT Total # of Minutes Spent Total Time Spent with Patient: Total time spent is greater than 50% in coordination of care (as documented) at patient's floor/unit and/or counseling patient: Coding Level of Care Code 31933 Initial Inpt Care Lvl 3 Diagnoses Asthma exacerbation J45.901 Restless leg syndrome G25.81 Anxiety F41.9 Sleep apnea G47.30 Hypothyroid E03.9 Acid reflux K21.9 HLD (hyperlipidemia) E78.5 HTN (hypertension) I10
[2021-08-23] MEDS ORDERED: LEVALBUTEROL TARTRATE 15 GM HFA.AER.AD INH PRN (02:07)
[2021-08-23] MEDS ORDERED: ONDANSETRON INJ 2 MG/ML 2 ML VIAL IV PRN (02:07)
[2021-08-23] MEDS: LEVOTHYROXINE SODIUM 100 MCG TABLET PO SCH (05:16)
[2021-08-23] MEDS: BENZONATATE 100 MG CAPSULE PO PRN ×2 (05:16→19:45)
[2021-08-23] MEDS: methylPREDNISolone 40 MG in SYRINGE 0 ML IV SCH ×3 (05:16→22:09)
[2021-08-23] MEDS: ACETAMINOPHEN 325 MG TAB PO PRN ×3 (05:16→19:45)
[2021-08-23 06:59] LABS: Basophils # (auto) 0.01 K/uL (0-0.2); Basophils % (auto) 0.1 %; Hematocrit (blood only) 38.7 % (37-47); Hemoglobin 13.2 g/dL (12.0-16.0); Immature Granulocytes # (auto) 0.09 K/uL (0.00-0.02); Immature Granulocytes % (auto) 0.6 %; Lymphocytes # (auto) 2.07 K/uL (1.2-3.4); Lymphocytes % (auto) 14.3 %; Mean Corpuscular Hemoglobin 29.9 pg (25-34); Mean Corpuscular Hgb Conc 34.1 g/dL (32-36); Mean Corpuscular Volume 87.6 fL (80-100); Monocytes # (auto) 0.11 K/uL (0.11-0.59); Monocytes % (auto) 0.8 %; Neutrophils # (auto) 12.16 K/uL (1.4-6.5); Neutrophils % (auto) 84.2 %; Platelet Count 376 K/uL (130-400); RDW Coefficient of Variation 13.5 % (11.5-14.5); RDW Standard Deviation 43.4 fL (36.4-46.3); Red Blood Count 4.42 M/uL (4.2-5.4); White Blood Count 14.44 K/uL (4.8-10.8)
[2021-08-23] MEDS: ALBUT/IPRATROP 3MG/0.5MG NEB 3 ML VIAL NEB SCH ×4 (07:16→19:02)
[2021-08-23 07:36] LABS: Albumin Level 4.1 gm/dl (3.4-5.0); BUN Creatinine Ratio 14.4 (10-20); Calcium 8.6 mg/dl (8.5-10.1); Creatinine Clr Calc Pharmacy 55.5 ml/min; Est GFR (African American) 65.8 ml/min; Est GFR (Non-African American) 56.7 ml/min; Phosphorus 3.1 mg/dl (2.5-4.9); Potassium 4.1 mmol/L (3.5-5.1)
--- NOTE | 2021-08-23 07:40 | XRay Report ---
SINGLE VIEW CHEST CLINICAL HISTORY: Dyspnea. FINDINGS: An AP, portable, upright chest radiograph is compared to study dated 08/18/2021. Correlation is made with chest CT dated 06/17/2017. The heart is mildly enlarged. The pulmonary vasculature is non congested. Scarring/atelectasis is seen at the lung bases. The lungs and pleural spaces are otherwise clear. No pneumothorax is seen. The skeletal structures are osteopenic. The bony thorax is grossly i ntact. IMPRESSION: Cardiomegaly with no active disease in the chest. ACT 112: Negative or not required by law. Electronically signed by: Hernandez Heredia M.D. 08/23/2021 7:39 AM
[2021-08-23] MEDS: amLODIPine BESYLATE 5 MG TAB PO SCH (10:02)
[2021-08-23] MEDS: ENOXAPARIN INJ 40 MG/0.4 ML SYR SQ SCH (10:03)
[2021-08-23] MEDS: CHOLECALCIFEROL 1,000 UNITS 25 MCG TAB PO SCH (10:03)
[2021-08-23] MEDS: carvediloL 6.25 MG TAB PO SCH ×2 (10:03→22:09)
[2021-08-23] MEDS: OLMESARTAN MEDOXOMIL 40 MG TAB PO SCH (10:04)
[2021-08-23] MEDS: guaiFENesin 600 MG TABCR PO SCH ×2 (10:04→22:09)
[2021-08-23] MEDS: FAMOTIDINE 20 MG TAB PO SCH (10:04)
[2021-08-23] MEDS: AZITHROMYCIN 500 MG in DEXTROSE 5% 250 ML IV SCH (10:07)
--- NOTE | 2021-08-23 14:29 | Hospitalist Progress Note ---
Date of Service August 23, 2021 Assessment & Plan (1) Asthma exacerbation: Plan: Feeling much better after solumedrol, Duonebs Very little wheeze on exam Solu-Medrol 40 mg IV every 8 hours Guaifenesin extended release 1200 mg p.o. twice daily Azithromycin 500 mg IV daily Duonebs every 4 hours while awake and every 2 hours when necessary. Nasal cannula oxygen, titrate to keep pulse ox around 94% (2) Restless leg syndrome: Plan: Continue ropinirole 0.5 mg at bedtime (3) HTN (hypertension): Plan: Continue carvedilol 6.25 mg p.o. twice daily, amlodipine 5 mg every morning and telmisartan 40 mg every morning (4) Anxiety: Plan: Continue Viibryd 10 mg every morning (5) Hypothyroid: Plan: Continue levothyroxine 100 mcg daily (6) Acid reflux: Plan: Continue famotidine 20 mg every morning (7) HLD (hyperlipidemia): Plan: Continue pravastatin 80 mg at bedtime (8) Sleep apnea: Plan: CPAP at bedtime as needed Plan: discharge in the next 24 hrs Admission and Anticipated Discharge Date Admission Date: August 23, 2021 Subjective patient seen and examined, says SOB and wheeze much better Review of Systems Review of Systems: All systems reviewed are negative, apart from the ones contained in the history. Physical Exam Physical Exam: The patient is awake, alert and oriented 3, well developed and well nourished, normocephalic and atraumatic, lying in bed and in no acute distress. HEENT--PERRL, EOMI, mucous membranes and oropharynx mildly dry Neck--supple. No JVD. No bruits. Thyroid normal, trachea midline, no adenopathy. Heart--normal S1 and S2. No murmurs, rubs or gallops. Lungs--clear bilaterally, no respiratory distress, no accessory muscle use. Abdomen--normal bowel sounds and soft. Mild epigastric and left sided abdominal pain Extremities--no cyanosis or clubbing. No edema. Dermatologic--normal skin turgor, normal color, no abnormal lymph nodes, no rash. Neurologic--cranial nerves II through XII grossly intact. Rheumatologic--normal range of motion. Psychiatric--normal affect. Results & Data Results & Data ([facility]) Vital Signs (Past 12 Hours) Vital Signs Temp Pulse Pulse Resp BP BP Pulse Ox 08/23/21 11:17 98.2 F 70 20 128/78 93 08/23/21 10:52 78 22 96 08/23/21 08:00 75 08/23/21 07:36 98.2 F 73 20 132/78 96 08/23/21 07:17 73 20 93 08/23/21 02:43 67 08/23/21 02:29 97.5 F L 78 20 157/81 H 95 PG Care Time/CCT Total # of Minutes Spent Total Time Spent with Patient: Total time spent is greater than 50% in coordination of care (as documented) at patient's floor/unit and/or counseling patient: Coding Level of Care Code 57679 Subseq Hosp Care Lvl 2 Diagnoses Asthma exacerbation J45.901 Restless leg syndrome G25.81 HTN (hypertension) I10 Anxiety F41.9 Hypothyroid E03.9 Acid reflux K21.9 HLD (hyperlipidemia) E78.5 Sleep apnea G47.30 Time Spent (min) 35
[2021-08-23] MEDS: rOPINIRole HCL 0.25 MG TABLET PO SCH (22:10)
[2021-08-23] MEDS: PRAVASTATIN SOD 40 MG TAB PO SCH (22:10)
--- NOTE | 2021-08-23 22:13 | Electrocardiogram Report ---
Test Reason : Blood Pressure : / mmHG Vent. Rate : 068 BPM Atrial Rate : 068 BPM P-R Int : 134 ms QRS Dur : 076 ms QT Int : 432 ms P-R-T Axes : 040 -11 018 degrees QTc Int : 459 ms Poor data quality, interpretation may be adversely affected Normal sinus rhythm Nonspecific ST and T wave abnormality Abnormal ECG When compared with ECG of 18-AUG-2021 13:49, Nonspecific T wave abnormality no longer evident in Anterior leads Confirmed by iMcheal Aleman ([id number]) on 08/23/2021 10:13:14 PM Referred By: REFERRED SELF Confirmed By:Micheal Aleman
[2021-08-24] MEDS: LEVOTHYROXINE SODIUM 100 MCG TABLET PO SCH (05:58)
[2021-08-24] MEDS: methylPREDNISolone 40 MG in SYRINGE 0 ML IV SCH (05:58)
[2021-08-24] MEDS: ALBUT/IPRATROP 3MG/0.5MG NEB 3 ML VIAL NEB SCH ×4 (07:03→18:58)
[2021-08-24] MEDS: ENOXAPARIN INJ 40 MG/0.4 ML SYR SQ SCH (07:48)
[2021-08-24] MEDS: AZITHROMYCIN 500 MG in DEXTROSE 5% 250 ML IV SCH (07:48)
[2021-08-24] MEDS: CHOLECALCIFEROL 1,000 UNITS 25 MCG TAB PO SCH (07:49)
[2021-08-24] MEDS: amLODIPine BESYLATE 5 MG TAB PO SCH (07:49)
[2021-08-24] MEDS: FAMOTIDINE 20 MG TAB PO SCH (07:49)
[2021-08-24] MEDS: guaiFENesin 600 MG TABCR PO SCH ×2 (07:49→20:54)
[2021-08-24] MEDS: VILAZODONE HCL 10 MG PO SCH (07:49)
[2021-08-24] MEDS: carvediloL 6.25 MG TAB PO SCH ×2 (07:49→20:54)
[2021-08-24] MEDS: OLMESARTAN MEDOXOMIL 40 MG TAB PO SCH (07:49)
[2021-08-24] MEDS: BENZONATATE 100 MG CAPSULE PO PRN ×2 (07:52→20:58)
[2021-08-24 08:22] LABS: Basophils # (auto) 0.01 K/uL (0-0.2); Basophils % (auto) 0.1 %; Hematocrit (blood only) 39.4 % (37-47); Hemoglobin 13.5 g/dL (12.0-16.0); Immature Granulocytes # (auto) 0.19 K/uL (0.00-0.02); Lymphocytes # (auto) 2.84 K/uL (1.2-3.4); Lymphocytes % (auto) 14.4 %; Mean Corpuscular Hemoglobin 30.1 pg (25-34); Mean Corpuscular Hgb Conc 34.3 g/dL (32-36); Mean Corpuscular Volume 87.9 fL (80-100); Mean Platelet Volume 9.8 fL (7.4-10.4); Monocytes # (auto) 0.41 K/uL (0.11-0.59); Monocytes % (auto) 2.1 %; Neutrophils % (auto) 82.4 %; Platelet Count 462 K/uL (130-400); RDW Coefficient of Variation 13.7 % (11.5-14.5); RDW Standard Deviation 44.1 fL (36.4-46.3); Red Blood Count 4.48 M/uL (4.2-5.4); White Blood Count 19.75 K/uL (4.8-10.8)
[2021-08-24 08:53] LABS: Calcium 9.1 mg/dl (8.5-10.1); Creatinine Clr Calc Pharmacy 55.3 ml/min; Est GFR (Non-African American) 56.1 ml/min; Magnesium 2.2 mg/dl (1.7-2.4); Phosphorus 3.1 mg/dl (2.5-4.9)
[2021-08-24] MEDS: ACETAMINOPHEN 325 MG TAB PO PRN ×2 (10:19→21:01)
--- NOTE | 2021-08-24 13:03 | Hospitalist Progress Note ---
Date of Service August 24, 2021 Assessment & Plan (1) Asthma exacerbation: Plan: Feeling much better after solumedrol, Duonebs Wheezing has resolved Solu-Medrol 40 mg IV every 8 hours Guaifenesin extended release 1200 mg p.o. twice daily Patient completed a course of Azithromycin 500 mg IV daily, will discontinue Duonebs every 4 hours while awake and every 2 hours when necessary. Nasal cannula oxygen, titrate to keep pulse ox around 94% Will transition to PO Predisone taper upon discharge Patient complained of worsening nasal congestion since taking her home Vilazodone. Will monitor her overnight (2) Restless leg syndrome: Plan: Continue ropinirole 0.5 mg at bedtime (3) HTN (hypertension): Plan: Continue carvedilol 6.25 mg p.o. twice daily, amlodipine 5 mg every morning and telmisartan 40 mg every morning (4) Anxiety: Plan: Continue Viibryd 10 mg every morning (5) Hypothyroid: Plan: Continue levothyroxine 100 mcg daily (6) Acid reflux: Plan: Continue famotidine 20 mg every morning (7) HLD (hyperlipidemia): Plan: Continue pravastatin 80 mg at bedtime (8) Sleep apnea: Plan: CPAP at bedtime as needed Plan: discharge in the next 24 hrs Admission and Anticipated Discharge Date Admission Date: August 23, 2021 Subjective patient seen and examined, says SOB and wheeze much better, but complains of worsening congestion since she took her home Vilazodone Review of Systems Review of Systems: All systems reviewed are negative, apart from the ones contained in the history. Physical Exam Physical Exam: The patient is awake, alert and oriented 3, well developed and well nourished, normocephalic and atraumatic, lying in bed and in no acute distress. HEENT--PERRL, EOMI, mucous membranes and oropharynx mildly dry Neck--supple. No JVD. No bruits. Thyroid normal, trachea midline, no adenopathy. Heart--normal S1 and S2. No murmurs, rubs or gallops. Lungs--clear bilaterally, no respiratory distress, no accessory muscle use. Abdomen--normal bowel sounds and soft. Mild epigastric and left sided abdominal pain Extremities--no cyanosis or clubbing. No edema. Dermatologic--normal skin turgor, normal color, no abnormal lymph nodes, no rash. Neurologic--cranial nerves II through XII grossly intact. Rheumatologic--normal range of motion. Psychiatric--normal affect. Results & Data Results & Data ([facility]) Vital Signs (Past 12 Hours) Vital Signs Temp Pulse Pulse Resp BP BP Pulse Ox 08/24/21 11:34 98.1 F 69 18 123/76 92 08/24/21 11:09 74 20 95 08/24/21 07:16 97.3 F L 65 18 134/84 98 08/24/21 07:12 65 08/24/21 07:04 69 16 98 08/24/21 04:10 98.1 F 67 18 129/73 96 PG Care Time/CCT Total # of Minutes Spent Total Time Spent with Patient: Total time spent is greater than 50% in coordination of care (as documented) at patient's floor/unit and/or counseling patient: Coding Level of Care Code 32757 Subseq Hosp Care Lvl 2 Diagnoses Asthma exacerbation J45.901 Restless leg syndrome G25.81 HTN (hypertension) I10 Anxiety F41.9 Hypothyroid E03.9 Acid reflux K21.9 HLD (hyperlipidemia) E78.5 Sleep apnea G47.30 Time Spent (min) 35
[2021-08-24] MEDS: rOPINIRole HCL 0.25 MG TABLET PO SCH (20:53)
[2021-08-24] MEDS: PRAVASTATIN SOD 40 MG TAB PO SCH (20:54)
[2021-08-25] MEDS: LEVOTHYROXINE SODIUM 100 MCG TABLET PO SCH (05:44)
[2021-08-25] MEDS: ALBUT/IPRATROP 3MG/0.5MG NEB 3 ML VIAL NEB SCH ×2 (07:32→11:13)
[2021-08-25] MEDS: BENZONATATE 100 MG CAPSULE PO PRN (07:48)
[2021-08-25] MEDS: carvediloL 6.25 MG TAB PO SCH (07:48)
[2021-08-25] MEDS: guaiFENesin 600 MG TABCR PO SCH (07:49)
[2021-08-25] MEDS: OLMESARTAN MEDOXOMIL 40 MG TAB PO SCH (07:49)
[2021-08-25] MEDS: ENOXAPARIN INJ 40 MG/0.4 ML SYR SQ SCH (07:49)
[2021-08-25] MEDS: VILAZODONE HCL 10 MG PO SCH (07:49)
[2021-08-25] MEDS: FAMOTIDINE 20 MG TAB PO SCH (07:49)
[2021-08-25] MEDS: CHOLECALCIFEROL 1,000 UNITS 25 MCG TAB PO SCH (07:49)
[2021-08-25] MEDS: amLODIPine BESYLATE 5 MG TAB PO SCH (07:49)
[2021-08-25 08:51] LABS: Hematocrit (blood only) 39.5 % (37-47); Hemoglobin 13.4 g/dL (12.0-16.0); Mean Corpuscular Hemoglobin 29.6 pg (25-34); Mean Corpuscular Hgb Conc 33.9 g/dL (32-36); Mean Corpuscular Volume 87.4 fL (80-100); Mean Platelet Volume 10.3 fL (7.4-10.4); Platelet Count 458 K/uL (130-400); RDW Coefficient of Variation 13.8 % (11.5-14.5); RDW Standard Deviation 44.4 fL (36.4-46.3); Red Blood Count 4.52 M/uL (4.2-5.4)
[2021-08-25] MEDS ORDERED: predniSONE 20 MG TAB PO SCH (09:00)
[2021-08-25 09:16] LABS: Basophils # (auto) 0.02 K/uL (0-0.2); Basophils % (auto) 0.1 %; Eosinophils # (auto) 0.01 K/uL (0-0.5); Eosinophils % (auto) 0.1 %; Immature Granulocytes # (auto) 0.29 K/uL (0.00-0.02); Immature Granulocytes % (auto) 1.6 %; Lymphocytes % (auto) 27.6 %; Monocytes # (auto) 1.47 K/uL (0.11-0.59); Monocytes % (auto) 8.1 %; Neutrophils # (auto) 11.31 K/uL (1.4-6.5); Neutrophils % (auto) 62.5 %
[2021-08-25 10:00] LABS: Albumin Level 3.9 gm/dl (3.4-5.0); BUN Creatinine Ratio 19.4 (10-20); Calcium 8.6 mg/dl (8.5-10.1); Creatinine Clr Calc Pharmacy 53.7 ml/min; Est GFR (African American) 62.8 ml/min; Est GFR (Non-African American) 54.2 ml/min; Magnesium 2.1 mg/dl (1.7-2.4); Phosphorus 2.3 mg/dl (2.5-4.9); Potassium 3.6 mmol/L (3.5-5.1)
--- NOTE | 2021-08-25 10:28 | Discharge Summary ---
Date of Service August 25, 2021 Admission HPI Per Admitting Provider The patient is a 66-year-old female with a past medical history including hypertension, GERD, asthma, hypothyroidism, hyperlipidemia, restless legs and anxiety. She presents to the emergency department with symptoms as noted above. She is felt to have reactive airways disease exacerbation, and was referred for evaluation for admission. From the ED, she received Solu-Medrol 105 mg IV, magnesium 1 g IV, ceftriaxone 2 g IV, a DuoNeb, and 1 L normal saline Principal Diagnosis Asthma exacerbation Discharge Exam Constitutional WD/WN, vitals as above Respiratory normal respiratory effort, lungs clear to auscultation Cardiovascular RRR, no murmur, no edema Psychiatric A+Ox3, euthymic affect Discharge Data Allergies Allergy/AdvReac Type Severity Reaction Status Date / Time Sulfa (Sulfonamide Allergy Intermediate FACIAL Verified 08/19/20 20:17 Antibiotics) SWELLING propoxyphene Allergy Mild Vomiting Verified 08/19/20 20:17 Consultations 08/22/21 23:52 ED Decision to Admit Stat Hospital Course (1) Asthma exacerbation: Irina Gates is a 66 year old female admitted to [facility] from August 232021 due to wheezing. She was treated as an acute asthma exacerbation without pneumonia with intravenous steroids and nebulizer treatments. She improved during her admission and is no longer wheezing. She should continue on prednisone tapering course as prescribed on discharge and n ebulizers regularly for the next 2 days then as needed. She will follow up with her primary care provider as previously arranged. (2) Restless leg syndrome: (3) HTN (hypertension): (4) Anxiety: (5) Hypothyroid: (6) Acid reflux: (7) HLD (hyperlipidemia): (8) Sleep apnea: Total Time Total Time Spent Total Time Spent (In Minutes): 25 Discharge Plan Discharge Items Patient Disposition: Home - Self-Care Reason For Visit: ASTHMA EXACERBATION Discharge Diagnosis: Asthma exacerbation Activity: Resume your previous activity Non-emergency contact: Primary Care Provider Call non-emergency contact if: you have any medication questions and your symptoms worsen Follow-up/Referrals: Yani Blood DO [Primary Care Provider] - Diet: Regular Addtl Attending Provider Instructions: You were admitted to [facility] from August 23 - 2021 due to wheezing. You were treated as an acute asthma exacerbation without pneumonia with intravenous steroids and nebulizer treatments. You improved and are no longer wheezing. Please continue prednisone (steroid) as prescribed on discharge and nebulizer treatments regularly for the next 2 days then as needed. Please follow up with your primary care provider as previously arranged. Pending Studies at Discharge: No Stand-Alone Forms: My [facility], Smoking Cessation Medications and DC Order Prescriptions: New ipratropium-albuterol 0.5 mg-3 mg(2.5 mg base)/3 mL solution for nebulization 3 ml inhalation QID PRN (Reason: wheezing) Qty: 90 RF: 0 prednisone 5 mg tablet See Rx Instructions .ROUTE .COMPLEX Qty: 36 RF: 0 Continued pravastatin 80 mg tablet 80 mg PO HS RF: 0 olmesartan [Benicar] 40 mg tablet 40 mg PO QAM RF: 0 cholecalciferol (vitamin D3) [Vitamin D3] 25 mcg (1,000 unit) Tablet 25 mcg PO QAM RF: 0 famotidine 20 mg tablet 20 mg PO QAM RF: 0 carvedilol 6.25 mg tablet 6.25 mg PO BID RF: 0 amlodipine 5 mg tablet 5 mg PO QAM RF: 0 ropinirole 0.5 mg tablet 0.5 mg PO HS RF: 0 Viibryd 10 mg tablet 10 mg PO QAM RF: 0 benzonatate 100 mg capsule 100 mg PO TID PRN (Reason: Cough) RF: 0 levothyroxine 100 mcg tablet 100 mcg PO DAILYBB RF: 0 levalbuterol tartrate 45 mcg/actuation HFA aerosol inhaler 2 puff INHALATION Q4 PRN (Reason: Wheezing) RF: 0 Discontinued prednisone 20 mg tablet 40 mg PO DAILY RF: 0 Discharge Orders: Discharge Order (Routine); Ordered 08/25/21 Ordered By: Tashi Gandhi Admission Data Admit Date/Time: 08/23/21 01:14 Attending Provider: Tashi Gandhi Admit Provider: Eduardo Crenshaw Primary Care Provider: Yani Blood Other Interventions: Discharge Summary Assessment (RN) Last Done: 08/25/21 10:45 Coding Level of Care Code D/C DAY MANAGEMENT <30 MINS Diagnoses Asthma exacerbation J45.901 Restless leg syndrome G25.81 HTN (hypertension) I10 Anxiety F41.9 Hypothyroid E03.9 Acid reflux K21.9 HLD (hyperlipidemia) E78.5 Sleep apnea G47.30
== END 2021-08-25 11:17 | disposition home or self-care (01) | DRG 203 ==
LOC: ED 21:57 → SUATTDRO 08-23 01:14 → 2W 08-23 01:14
DX: Z79.52 Long term (current) use of systemic steroids; Z79.899 Other long term (current) drug therapy; Z88.5 Allergy status to narcotic agent; E03.9 Hypothyroidism, unspecified; G25.81 Restless legs syndrome; Z79.890 Hormone replacement therapy; J45.901 Unspecified asthma with (acute) exacerbation; G47.30 Sleep apnea, unspecified; Z88.2 Allergy status to sulfonamides; E78.5 Hyperlipidemia, unspecified; I10 Essential (primary) hypertension; K21.9 Gastro-esophageal reflux disease without esophagitis; F41.9 Anxiety disorder, unspecified